=== PATIENT | female | born 1955 | race Caucasian/White ===

== ENCOUNTER → 2023-10-06 19:57 | Outpatient (REF) | payer OTHER, SELFPAY | LOC: MRI 19:57 | PROVIDERS: ATTENDING PHYSICIAN Family Medicine | DX: M25.552 Pain in left hip (principal) | CPT/HCPCS: 73721 ==

== ENCOUNTER → 2024-08-16 08:44 | Outpatient (REF) | payer OTHER, SELFPAY | LOC: HWRAD 08:44 | PROVIDERS: ATTENDING PHYSICIAN Internal Medicine Geriatric Medicine | DX: Z12.31 Encounter for screening mammogram for malignant neoplasm of breast (principal); M81.0 Age-related osteoporosis without current pathological fracture | CPT/HCPCS: 77063; 77067; 77080 ==

== ENCOUNTER 2024-10-14 06:13 | Day surgery (SDC) | payer OTHER, SELFPAY | END 2024-10-14 10:57 | disposition home or self-care (01) | LOC: GI 06:13 | PROVIDERS: ATTENDING PHYSICIAN Specialist; FAMILY PHYSICIAN Internal Medicine Geriatric Medicine | DX: Z12.11 Encounter for screening for malignant neoplasm of colon (principal); K57.30 Diverticulosis of large intestine without perforation or abscess without bleeding; K63.89 Other specified diseases of intestine; R10.10 Upper abdominal pain, unspecified; K31.89 Other diseases of stomach and duodenum; D12.2 Benign neoplasm of ascending colon; Z86.0101 Personal history of adenomatous and serrated colon polyps | CPT/HCPCS: 45385; 43239; 88305; 88342 ==

== ENCOUNTER → 2024-12-02 08:59 | Outpatient (REF) | payer OTHER, SELFPAY | LOC: RAD 08:59 | PROVIDERS: ATTENDING PHYSICIAN Specialist; FAMILY PHYSICIAN Internal Medicine Geriatric Medicine | DX: R10.10 Upper abdominal pain, unspecified (principal) | CPT/HCPCS: 74177; Q9967 ==